=== PATIENT | male | born 1960 | race Caucasian/White ===

== ENCOUNTER 2017-04-10 15:18 | Emergency (ER) | payer OTHER ==
[~2017-04-10] VITALS: Ht 180.3 cm; Wt 97.5 kg
[~2017-04-10 15:18] MED LIST: CIPRO500 MG PO; DIAZEPAM10 MG PO; FLAGYL500 MG PO; LISINOPRIL-HCT1 EACH PO; OXYCODONE HCL10 MG PO
[2017-04-10] MEDS ORDERED: COLCHICINE0.6 M1 PO (16:02)
[2017-04-10] MEDS ORDERED: PREDNISONE10 M1 PO (17:23)
== END 2017-04-10 18:11 | disposition home or self-care (01) ==
LOC: ED 15:18
DX: M10.9 Gout, unspecified (principal); I10 Essential (primary) hypertension; I25.2 Old myocardial infarction; F17.200 Nicotine dependence, unspecified, uncomplicated; Z86.19 Personal history of other infectious and parasitic diseases; Z88.5 Allergy status to narcotic agent; Z79.899 Other long term (current) drug therapy
CPT/HCPCS: 96374; 96375; 99282; J1885; J2930